=== PATIENT | female | born 1990 | race Caucasian/White ===

== ENCOUNTER 2017-07-26 19:23 | Emergency (ER) | payer SELFPAY ==
[~2017-07-26 19:23] MED LIST: ISOVUE-370 76%-LOCM 1 ML ONE
[2017-07-26 19:57] LABS: Bilirubin Negative (Negative); Blood, Urine Small (Negative); Glucose, Urine (Dipstick) Negative (Negative); Ketone, Urine Negative (Negative); Nitrite Negative (Negative); Protein, Urine (Dipstick) Negative (Neg-Trace); Urobilinogen 0.2 mg/dL (0.2-1.0)
[2017-07-26 19:59] LABS: Bacteria/HPF 1+ HPF (None Seen); Hyaline Casts/LPF 0-3 HYALINE CAST LPF (0-3 Hyaline); WBC/HPF 0-3 HPF (0-3)
[2017-07-26] MEDS ORDERED: Ondansetron HCl/PF 4 MG/2 ML Vial ONE (20:07)
[2017-07-26] MEDS ORDERED: Ketorolac Tromethamine 30 MG/ML VIAL ONE (20:07)
--- NOTE | 2017-07-26 21:45 | CT ---
EXAM: ABDOMEN CT WITHOUT CONTRAST PELVIC CT WITHOUT CONTRAST 07/26/17 HISTORY: Worsening right flank pain x5 days. Dysuria. Nausea and emesis. COMPARISON: None. TECHNIQUE: Abdomen and pelvic CT are performed without contrast. Coronal reformatted images are submitted for in terpretation. FINDINGS: ABDOMEN CT: Lung bases are clear. There appears to be air attenuation along the anterior left aspect of the media stinum/pericardium. Significance of this air is uncertain. Limited evaluation of the solid organs by lack of IV contrast. Grossly, no solid organ abnormality. Gallbladder is surgically absent. Normal caliber appendix is identified. No evidence of bowel obstruction. There is evidence of diverti culosis, without evidence of diverticulitis. Symmetric attenuation of the psoas muscles. Limited evaluation for inflammatory change due to decreas e intra-abdominal fat. No mesenteric mass, lymphadenopathy, free air or free fluid. There are bilateral 1 to 2 mm intrarenal calculi. With regard to the left intra and extrarenal collec ting system, No evidence of obstructive uropathy. There is mild dilatation of the right renal pelvis and right calyces. The right ureter is difficult to appreciate in its entirety. There do not appear t o be any calcification along the expected course of the right ureter. The visualized right ureter ward s not appear to be dilated. No definite periureteral fat stranding. PELVIC CT: The uterus and adnexal structures are grossly unremarkable. No pelvic mass, lymphadenopathy, free air or free fluid. No lytic or blastic lesions in the osseous structures. IMPRESSION: 1. Bilateral nonobstructing intrarenal calculi. 2. Mild right sided obstructive uropathy without associated obstructing calculus. Nonemergent IV P can be performed. 3. Normal caliber appendix. 4. Diverticulosis, without evidence of diverticulitis. 5. Air attenuation noted in the anterior mediastinum/pericardial region. Better interrogation wi th a chest CT is recommended. Results of the study discussed with Dr. Marquez, 07/26/17 at 8:30 p.m. Code CR POS: [facility]
--- NOTE | 2017-07-26 22:52 | CT ---
EXAM: POSTCONTRAST CHEST CT 07/26/17 HISTORY: Questionable air in the anterior mediastinum noted on recent abdomen CT. COMPARISON: None. CORRELATION: Abdomen CT 07/26/17. TECHNIQUE: Postcontrast chest CT is performed in the axial plane. Coronal reformatted images are submitted for i nterpretation. FINDINGS: No mediastinal mass, lymphadenopathy, or hematoma. Heart size is within normal limits. No pericardial effusion. The visualized aorta has a normal caliber. No periaortic fat stranding. Trachea and central bronchi are patent. No consolidation or mass. No pleural effusion. No pneumothora x. Previously suggested air in the anterior mediastinum is not present. Previous finding likely represen erasto a small focus of lung parenchyma just anterior to the left cardiac apex. There are no lytic or blastic lesions of the osseous structures. IMPRESSION: No evidence of air in the mediastinum or pericardial region. POS: [facility]
== END 2017-07-26 22:13 | disposition home or self-care (01) ==
LOC: ERS 19:23
DX: R31.9 Hematuria, unspecified (principal); R10.9 Unspecified abdominal pain
CPT/HCPCS: 71260; 74176; 81003; 81015; 81025; 96361; 96374; 96375; J1885; J2405